=== PATIENT | female | born 1990 | race African-American/Black ===

== ENCOUNTER 2017-05-17 18:52 | Emergency (ER) | payer OTHER ==
[~2017-05-17] VITALS: Ht 162.6 cm; Wt 59.0 kg
[~2017-05-17 18:52] MED LIST: AMOXICILLIN875 MG PO; IBUPROFEN 800800 MG PO
[2017-05-17] MEDS ORDERED: BUTALB-APAP-CA1 EACH PO (19:59)
== END 2017-05-17 20:12 | disposition home or self-care (01) ==
LOC: ER 18:52 → EDBD 18:52 → ER 20:12
DX: R51 Headache (principal); F17.210 Nicotine dependence, cigarettes, uncomplicated; V89.2XXA Person injured in unspecified motor-vehicle accident, traffic, initial encounter; Y93.89 Activity, other specified; Y92.89 Other specified places as the place of occurrence of the external cause; Y99.8 Other external cause status